=== PATIENT | female | born 1940 | race Caucasian/White ===

== ENCOUNTER 2024-07-05 13:47 | Outpatient (CLI) | payer MEDICARE | END 2024-07-05 13:48 | disposition home or self-care (01) | LOC: CSHCT 13:47 | PROVIDERS: ATTEND Surgery | DX: S06.5XAD Traumatic subdural hemorrhage with loss of consciousness status unknown, subsequent encounter (principal) | CPT/HCPCS: 70450 ==

== ENCOUNTER 2025-05-30 12:16 | Outpatient (CLI) | payer MEDICARE | END 2025-05-30 12:17 | disposition home or self-care (01) | LOC: CSHCT 12:16 | PROVIDERS: ATTEND Surgery | DX: I62.03 Nontraumatic chronic subdural hemorrhage (principal) | CPT/HCPCS: 70450 ==